=== PATIENT | female | born 1985 | race Caucasian/White ===

== ENCOUNTER → 2023-09-03 16:16 | Outpatient (REF) | payer OTHER, SELFPAY | LOC: HWRAD 16:16 | PROVIDERS: ATTENDING PHYSICIAN Physician Assistant; FAMILY PHYSICIAN Internal Medicine Geriatric Medicine | DX: M13.80 Other specified arthritis, unspecified site (principal); M25.50 Pain in unspecified joint; M79.641 Pain in right hand | CPT/HCPCS: 73130 ==

== ENCOUNTER → 2024-06-05 13:55 | Outpatient (REF) | payer OTHER, SELFPAY | LOC: HWRAD 13:55 | PROVIDERS: ATTENDING PHYSICIAN Nurse Practitioner Family; FAMILY PHYSICIAN Internal Medicine Geriatric Medicine | DX: Z34.90 Encounter for supervision of normal pregnancy, unspecified, unspecified trimester (principal) | CPT/HCPCS: 76801 ==

== ENCOUNTER → 2024-06-30 06:44 | Outpatient (REF) | payer OTHER, SELFPAY | LOC: PNTC 06:44 | PROVIDERS: ATTENDING PHYSICIAN Obstetrics & Gynecology | DX: O09.519 Supervision of elderly primigravida, unspecified trimester (principal); O99.210 Obesity complicating pregnancy, unspecified trimester; O99.320 Drug use complicating pregnancy, unspecified trimester; Z36.0 Encounter for antenatal screening for chromosomal anomalies; Z36.82 Encounter for antenatal screening for nuchal translucency | CPT/HCPCS: 76801; 76813 ==

== ENCOUNTER → 2024-07-28 16:24 | Outpatient (REF) | payer OTHER, SELFPAY | LOC: PNTC 16:24 | PROVIDERS: ATTENDING PHYSICIAN Obstetrics & Gynecology | DX: O09.519 Supervision of elderly primigravida, unspecified trimester (principal); O99.320 Drug use complicating pregnancy, unspecified trimester; O99.210 Obesity complicating pregnancy, unspecified trimester; Z36.0 Encounter for antenatal screening for chromosomal anomalies; Z36.82 Encounter for antenatal screening for nuchal translucency | CPT/HCPCS: 76805 ==

== ENCOUNTER → 2024-09-01 15:55 | Outpatient (REF) | payer OTHER, SELFPAY | LOC: PNTC 15:55 | PROVIDERS: ATTENDING PHYSICIAN Obstetrics & Gynecology | DX: O09.519 Supervision of elderly primigravida, unspecified trimester (principal); O99.320 Drug use complicating pregnancy, unspecified trimester; O99.210 Obesity complicating pregnancy, unspecified trimester | CPT/HCPCS: 76811; 76817 ==

== ENCOUNTER → 2024-10-14 16:46 | Outpatient (REF) | payer OTHER, SELFPAY | LOC: PNTC 16:46 | PROVIDERS: ATTENDING PHYSICIAN Obstetrics & Gynecology | DX: O09.529 Supervision of elderly multigravida, unspecified trimester (principal); O35.5XX0 Maternal care for (suspected) damage to fetus by drugs, not applicable or unspecified; O44.40 Low lying placenta NOS or without hemorrhage, unspecified trimester | CPT/HCPCS: 76816 ==

== ENCOUNTER 2024-11-11 07:28 | Outpatient (RCR) | payer OTHER, SELFPAY | END 2024-11-11 23:59 | disposition home or self-care (01) | LOC: RPT 07:28 | PROVIDERS: ATTENDING PHYSICIAN Student in an Organized Health Care Education/Training Program; FAMILY PHYSICIAN Internal Medicine Geriatric Medicine | DX: Z34.03 Encounter for supervision of normal first pregnancy, third trimester (principal); M54.30 Sciatica, unspecified side; Z73.6 Limitation of activities due to disability | CPT/HCPCS: 97112; 97162; 97530 ==

== ENCOUNTER → 2024-11-13 16:21 | Outpatient (REF) | payer OTHER, SELFPAY | LOC: PNTC 16:21 | PROVIDERS: ATTENDING PHYSICIAN Obstetrics & Gynecology | DX: O09.529 Supervision of elderly multigravida, unspecified trimester (principal); O44.42 Low lying placenta NOS or without hemorrhage, second trimester; O99.320 Drug use complicating pregnancy, unspecified trimester | CPT/HCPCS: 76816; 76817 ==

== ENCOUNTER → 2024-12-04 10:22 | Outpatient (REF) | payer OTHER, SELFPAY | LOC: PNTC 10:22 | PROVIDERS: ATTENDING PHYSICIAN Obstetrics & Gynecology | DX: O09.529 Supervision of elderly multigravida, unspecified trimester (principal) | CPT/HCPCS: 59025; 76815 ==

== ENCOUNTER 2024-12-18 06:53 | Outpatient (RCR) | payer OTHER, SELFPAY | END 2024-12-18 23:59 | disposition home or self-care (01) | LOC: RPT 06:53 | PROVIDERS: ATTENDING PHYSICIAN Student in an Organized Health Care Education/Training Program; FAMILY PHYSICIAN Internal Medicine Geriatric Medicine | DX: M54.30 Sciatica, unspecified side (principal); Z73.6 Limitation of activities due to disability; Z34.03 Encounter for supervision of normal first pregnancy, third trimester | CPT/HCPCS: 97110; 97112; 97140; 97530 ==

== ENCOUNTER → 2024-12-18 10:19 | Outpatient (REF) | payer OTHER, SELFPAY | LOC: PNTC 10:19 | PROVIDERS: ATTENDING PHYSICIAN Obstetrics & Gynecology | DX: O99.213 Obesity complicating pregnancy, third trimester (principal); O36.8330 Maternal care for abnormalities of the fetal heart rate or rhythm, third trimester, not applicable or unspecified; O09.513 Supervision of elderly primigravida, third trimester | CPT/HCPCS: 59025; 76816; 76818 ==

== ENCOUNTER → 2024-12-25 10:30 | Outpatient (REF) | payer OTHER, SELFPAY | LOC: PNTC 10:30 | PROVIDERS: ATTENDING PHYSICIAN Obstetrics & Gynecology | DX: O09.513 Supervision of elderly primigravida, third trimester (principal); O99.213 Obesity complicating pregnancy, third trimester; O99.323 Drug use complicating pregnancy, third trimester | CPT/HCPCS: 59025; 76815 ==

== ENCOUNTER → 2025-01-01 10:21 | Outpatient (REF) | payer OTHER, SELFPAY | LOC: PNTC 10:21 | PROVIDERS: ATTENDING PHYSICIAN Obstetrics & Gynecology | DX: O09.513 Supervision of elderly primigravida, third trimester (principal); O99.213 Obesity complicating pregnancy, third trimester; O35.5XX0 Maternal care for (suspected) damage to fetus by drugs, not applicable or unspecified | CPT/HCPCS: 59025; 76815 ==

== ENCOUNTER 2025-01-01 12:03 | Outpatient (RCR) | payer OTHER, SELFPAY | END 2025-01-14 13:45 | disposition home or self-care (01) | LOC: RPT 12:03 | PROVIDERS: ATTENDING PHYSICIAN Student in an Organized Health Care Education/Training Program; FAMILY PHYSICIAN Internal Medicine Geriatric Medicine | DX: M54.30 Sciatica, unspecified side (principal); Z73.6 Limitation of activities due to disability; Z33.1 Pregnant state, incidental; Z34.03 Encounter for supervision of normal first pregnancy, third trimester | CPT/HCPCS: 97110; 97112; 97140; 97530 ==

== ENCOUNTER 2025-01-08 03:15 | Inpatient (IN) | payer OTHER, SELFPAY ==
[2025-01-08 03:27] VITALS: BMI 36.3
[2025-01-08 03:48] VITALS: BP 134/83
[2025-01-08 04:46] LABS: Hematocrit 31.5 % (37.0-47.0); Hemoglobin 10.8 g/dL (12.0-16.0); Mean Corp Hgb Conc. 34.3 g/dL (33.0-37.0); Mean Corpuscular Volume 84.7 fL (81.0-99.0); Nucleated Red Blood Cells % 0 %; Platelet Count 243 10^3/uL (130-400); Red Cell Dist. Width 12.2 % (11.5-14.5)
[2025-01-08 05:09] LABS: ALT (SGPT) 15 U/L (0-35); AST (SGOT) 19 U/L (14-36); Albumin 3.7 g/dl (3.5-5.0); Alkaline Phosphatase 196 U/L (38-126); Blood Urea Nitrogen 9 mg/dl (7-17); Calcium 9.8 mg/dl (8.4-10.2); Carbon Dioxide 18 mmol/L (22-30); Chloride 107 mmol/L (98-107); Estimated Creatinine Clearance > 125 ml/min; Glucose 137 mg/dl (70-99); Potassium 3.7 mmol/L (3.5-5.1); Sodium 134 mmol/L (135-145); Total Protein 6.6 g/dl (6.3-8.2); eGFR > 60.00
[2025-01-08] MEDS: LR 1000 IV ×2 (08:10→23:02)
[2025-01-08] MEDS: PITOCIN 30 UNITS/NSS 500 ML IV (08:11)
[2025-01-08] MEDS: PRENATAL PLUS PO (09:00)
[2025-01-08] MEDS: SUBLIMAZE 100 MCG EPIDURAL (14:27)
[2025-01-08] MEDS: FENTANYL/BUPIVACAINE 100 EPIDURAL ×2 (14:27→23:02)
[2025-01-08] MEDS: ZOFRAN 4 MG IV (19:52)
[2025-01-08] MEDS: DESYREL PO (22:08)
[2025-01-08] MEDS: TUMS CHEWABLE TABLET 400 MG PO (23:21)
[2025-01-09] MEDS: ZOFRAN 4 MG IV (05:59)
[2025-01-09] MEDS: LR 1000 IV (06:47)
[2025-01-09] MEDS: FENTANYL/BUPIVACAINE 100 EPIDURAL (07:03)
[2025-01-09] MEDS: BICITRA 30 ML PO (12:42)
[2025-01-09] MEDS: CLEOCIN 50 IV (12:42)
[2025-01-09] MEDS: TYLENOL 975 MG PO (12:42)
[2025-01-09] MEDS: ZITHROMAX INFUSION 250 IV (13:00)
[2025-01-09] MEDS: GENTAMICIN 60 MG IV (13:10)
[2025-01-09] MEDS: PRENATAL PLUS PO (16:37)
[2025-01-09] MEDS: COLACE 100 MG PO (19:43)
[2025-01-09] MEDS: TORADOL 15 MG IV (19:43)
[2025-01-09] MEDS: BENADRYL 25 MG PO (21:25)
[2025-01-10] MEDS: TYLENOL 650 MG PO ×2 (01:40→20:12)
[2025-01-10] MEDS: DESYREL PO (01:40)
[2025-01-10] MEDS: TORADOL 15 MG IV ×3 (01:40→14:28)
[2025-01-10 05:51] LABS: Hematocrit 23.8 % (37.0-47.0); Hemoglobin 8.2 g/dL (12.0-16.0); Mean Corp Hgb Conc. 34.5 g/dL (33.0-37.0); Mean Corpuscular Volume 86.2 fL (81.0-99.0); Platelet Count 215 10^3/uL (130-400); Red Cell Dist. Width 12.5 % (11.5-14.5)
[2025-01-10] MEDS: COLACE 100 MG PO ×2 (07:59→20:12)
[2025-01-10] MEDS: PRENATAL PLUS 1 TABLET PO (07:59)
[2025-01-10] MEDS: BENADRYL 25 MG PO (08:34)
--- NOTE | 2025-01-10 15:44 | W.PN.ANS.POP ---
Anesthesia Post Operative
- Anesthesia Post Op Note
Vital Signs Stable-See Nursing Note: Yes
Airway Patent: Yes
Adequate Pain Control: Yes
Change in Mental Status: No
Current Postoperative Nausea & Vomiting: No
Anesthesia Complications: No
General Anesthetic Recall: No
Unplanned Admission: No
Post Op Hydration Adequate: Yes
[2025-01-10] MEDS: MOTRIN 600 MG PO (20:12)
[2025-01-10] MEDS: FEOSOL 325 MG PO (20:12)
[2025-01-10] MEDS: DESYREL 100 MG PO (22:19)
[2025-01-11] MEDS: MOTRIN 600 MG PO ×4 (03:13→22:31)
[2025-01-11] MEDS: TYLENOL 650 MG PO ×4 (03:13→22:31)
[2025-01-11] MEDS: COLACE 100 MG PO ×2 (08:44→19:46)
[2025-01-11] MEDS: FEOSOL 325 MG PO ×2 (08:44→19:45)
[2025-01-11] MEDS: PRENATAL PLUS 1 TABLET PO (08:44)
[2025-01-11] MEDS: DESYREL 100 MG PO (22:23)
[2025-01-12] MEDS: MOTRIN 600 MG PO ×2 (04:26→10:14)
[2025-01-12] MEDS: TYLENOL 650 MG PO (04:26)
--- NOTE | 2025-01-12 09:36 | W.DS.TRANS ---
DC Summary - Converting Technician
-
Discharge Instructions:
Discharge Diagnosis/Procedures cs
Instructions:
Stand-Alone Forms: LDRP Delivery
Changes to Home Medications: No
Discharge Medications:
DC Medications w/original date entered in [employer]
1 tab PO DAILY 01/08/25
trazodone 100 mg PO DAILY 01/08/25
ibuprofen 600 mg tablet 600 mg PO [id number] PRN cramps #90 tabs 01/12/25
Home Medication Changes
Pending Results: No
Total time spent discharging patient (in min): 15
[2025-01-12] MEDS: FEOSOL 325 MG PO (10:13)
[2025-01-12] MEDS: PRENATAL PLUS 1 TABLET PO (10:14)
[2025-01-12] MEDS: COLACE 100 MG PO (10:14)
[2025-01-13 13:53] LABS: Syphilis/T. pallidum Ab Reflex Negative (Negative)
== END 2025-01-12 18:03 | disposition home or self-care (01) | DRG 787 ==
LOC: LDRP 03:15
PROVIDERS: Student in an Organized Health Care Education/Training Program; ADMITTING PHYSICIAN Obstetrics & Gynecology; ATTENDING PHYSICIAN Obstetrics & Gynecology
PROC: 6A550ZT Pheresis of Cord Blood Stem Cells, Single (ICD-10-PCS; 2025-01-09)
PROC: 10D00Z1 Extraction of Products of Conception, Low, Open Approach (ICD-10-PCS; 2025-01-09)
DX: O42.02 Full-term premature rupture of membranes, onset of labor within 24 hours of rupture (principal); D62 Acute posthemorrhagic anemia; Z3A.39 39 weeks gestation of pregnancy; Z37.0 Single live birth; O99.344 Other mental disorders complicating childbirth; F32.A Depression, unspecified; F41.9 Anxiety disorder, unspecified; O99.214 Obesity complicating childbirth; O99.892 Other specified diseases and conditions complicating childbirth; R73.03 Prediabetes; O62.1 Secondary uterine inertia; O62.0 Primary inadequate contractions; O99.02 Anemia complicating childbirth; O32.8XX0 Maternal care for other malpresentation of fetus, not applicable or unspecified; Z88.1 Allergy status to other antibiotic agents; Z88.5 Allergy status to narcotic agent; Z86.14 Personal history of Methicillin resistant Staphylococcus aureus infection; Z87.442 Personal history of urinary calculi; Z90.49 Acquired absence of other specified parts of digestive tract; Z79.82 Long term (current) use of aspirin
CPT/HCPCS: 36415; 80053; 82570; 84156; 85025; 85027; 86780; 86850; 86900; 86901; 87070; 88307